=== PATIENT | male | born 1985 | race Caucasian/White ===

== ENCOUNTER 2020-02-26 16:33 | Outpatient (REF) | payer BC, SELFPAY ==
[2020-02-27 12:07] LABS: Lyme Abs Screen <0.90 index
== END 2020-02-26 16:34 | disposition home or self-care (01) ==
LOC: HO.LAB 16:33
PROVIDERS: PCP Internal Medicine; Visit Provider Physician Assistant
DX: B99.9 Unspecified infectious disease (principal)
CPT/HCPCS: 36415; 86618

== ENCOUNTER 2020-10-01 07:53 | Outpatient (REF) | payer BC, SELFPAY | END 2020-10-01 07:54 | disposition home or self-care (01) | LOC: HO.LAB 07:53 | PROVIDERS: PCP Internal Medicine; Visit Provider Internal Medicine | DX: Z20.822 Contact with and (suspected) exposure to COVID-19 (principal) | CPT/HCPCS: C9803; U0003; U0005 ==

== ENCOUNTER 2020-11-11 12:46 | Outpatient (REF) | payer BC, SELFPAY | END 2020-11-11 12:47 | disposition home or self-care (01) | LOC: HO.LAB 12:46 | PROVIDERS: PCP Internal Medicine; Visit Provider Internal Medicine | DX: Z20.822 Contact with and (suspected) exposure to COVID-19 (principal) | CPT/HCPCS: C9803; U0003; U0005 ==

== ENCOUNTER 2021-09-21 09:27 | Outpatient (REF) | payer BC, SELFPAY ==
[2021-09-21 11:22] LABS: MANUAL DIFF FLAG NO
[2021-09-21 11:38] LABS: Estimated Average Glucose 111 mg/dL; Hemoglobin A1c % 5.5 %
[2021-09-21 11:46] LABS: Basophils Absolute Auto 0.1 X10*3/uL (0.0-0.2); Basophils Percent Auto 0.8 % (0-2); Eosinophils Percent Auto 0.5 % (0-4); Hematocrit 44.7 % (42.0-52.0); Hemoglobin 14.7 g/dl (14.0-18.0); Imm Gran Abs Auto 0.01 X10*3/uL (0.00-0.03); Imm Gran Pct Auto 0.2 % (0.0-0.4); Lymphocytes Percent Auto 32.5 % (20-40); Mean Corpuscular HGB Conc 32.9 g/dl (31.0-36.0); Mean Corpuscular Hemoglobin 28.3 pg (27.0-33.0); Mean Corpuscular Volume 86.1 fL (80.0-98.0); Mean Platelet Volume 10.1 fL (9.4-12.4); Monocytes Absolute Auto 0.4 X10*3/uL (0.1-1.2); Monocytes Percent Auto 7.3 % (2-11); Neutrophils Absolute Auto 3.5 x10*3/uL (2.0-8.3); Neutrophils Percent Auto 58.7 % (45-73); Platelet Count 264 X10*3/uL (160-400); Red Blood Count 5.19 X10*6/uL (4.60-5.80); Red Cell Distribution Width 12.7 % (11.0-16.0)
[2021-09-21 12:11] LABS: Alanine Aminotransferase 23 U/L (0-40); Albumin Level 4.5 g/dL (3.5-5.0); Alkaline Phosphatase 45 U/L (39-117); Anion Gap 13 (12-20); Aspartate Amino Transferase 18 U/L (5-37); Blood Urea Nitrogen 15 mg/dL (9-16); Calcium 9.3 mg/dL (8.4-10.2); Carbon Dioxide 28 mmol/L (22-29); Chloride 104 mmol/L (96-108); Cholesterol 204 mg/dL; Estimated Glomerular Filt Rate > 60; Glucose Fasting 107 mg/dL (60-99); HDL Cholesterol 48 mg/dL; LDL Cholesterol Calculated 132 mg/dl; Potassium 4.3 mmol/L (3.3-5.1); Sodium 141 mmol/L (135-145); Triglycerides 120 mg/dL
== END 2021-09-21 09:28 | disposition home or self-care (01) ==
LOC: HO.MANLDS 09:27
PROVIDERS: Visit Provider Physician Assistant
DX: Z00.00 Encounter for general adult medical examination without abnormal findings (principal)
CPT/HCPCS: 36415; 80053; 80061; 83036; 85025

== ENCOUNTER 2022-09-26 09:36 | Outpatient (REF) | payer BC, SELFPAY ==
[2022-09-26 13:45] LABS: MANUAL DIFF FLAG NO
[2022-09-26 14:06] LABS: Basophils Absolute Auto 0.1 X10*3/uL (0.0-0.2); Basophils Percent Auto 0.7 % (0-2); Eosinophils Absolute Auto 0.1 X10*3/uL (0.0-0.4); Eosinophils Percent Auto 1.1 % (0-4); Hematocrit 45.5 % (42.0-52.0); Hemoglobin 14.7 g/dl (14.0-18.0); Imm Gran Abs Auto 0.03 X10*3/uL (0.00-0.03); Imm Gran Pct Auto 0.4 % (0.0-0.4); Lymphocytes Absolute Auto 2.5 X10*3/uL (1.2-4.9); Lymphocytes Percent Auto 34.8 % (20-40); Mean Corpuscular HGB Conc 32.3 g/dl (31.0-36.0); Mean Corpuscular Hemoglobin 28.4 pg (27.0-33.0); Mean Corpuscular Volume 87.8 fL (80.0-98.0); Mean Platelet Volume 9.9 fL (9.4-12.4); Monocytes Absolute Auto 0.5 X10*3/uL (0.1-1.2); Monocytes Percent Auto 6.7 % (2-11); Neutrophils Percent Auto 56.3 % (45-73); Platelet Count 281 X10*3/uL (160-400); Red Blood Count 5.18 X10*6/uL (4.60-5.80); Red Cell Distribution Width 12.6 % (11.0-16.0); White Blood Count 7.1 X10*3/uL (4.8-10.8)
[2022-09-26 15:11] LABS: Estimated Average Glucose 111 mg/dL; Hemoglobin A1c % 5.5 %
[2022-09-26 15:12] LABS: Alanine Aminotransferase 26 U/L (0-40); Albumin Level 4.2 g/dL (3.5-5.0); Alkaline Phosphatase 47 U/L (39-117); Anion Gap 10 (12-20); Aspartate Amino Transferase 23 U/L (5-37); Bilirubin Total 0.5 mg/dL (0.0-1.0); Blood Urea Nitrogen 22 mg/dL (9-16); Calcium 8.8 mg/dL (8.4-10.2); Carbon Dioxide 28 mmol/L (22-29); Chloride 106 mmol/L (96-108); Cholesterol 208 mg/dL; Estimated Glomerular Filt Rate > 60; Glucose Random 94 mg/dL (60-115); HDL Cholesterol 47 mg/dL; LDL Cholesterol Calculated 142 mg/dl; Potassium 3.8 mmol/L (3.3-5.1); Sodium 140 mmol/L (135-145); Total Protein 7.1 g/dL (6.5-8.0); Triglycerides 98 mg/dL
== END 2022-09-26 09:37 | disposition home or self-care (01) ==
LOC: HO.MANLDS 09:36
PROVIDERS: Visit Provider Physician Assistant
DX: Z00.00 Encounter for general adult medical examination without abnormal findings (principal); Z20.2 Contact with and (suspected) exposure to infections with a predominantly sexual mode of transmission
CPT/HCPCS: 36415; 80053; 80061; 83036; 85025

== ENCOUNTER 2024-11-11 16:20 | Outpatient (AMB) | payer BC, SELFPAY | END 2024-11-11 16:22 | disposition home or self-care (01) | LOC: HO.HMGAL 16:20 | PROVIDERS: PCP Physician Assistant; Visit Provider Registered Nurse Emergency | DX: J30.89 Other allergic rhinitis (principal) | CPT/HCPCS: 95117; 95165 ==

== ENCOUNTER 2024-12-04 16:22 | Outpatient (AMB) | payer BC, SELFPAY ==
--- OUTSIDE RECORDS SUMMARY | 2024-12-04 19:27 | XMS_ITS | Encounter Summary ---
Author Organization [facility] Address [address] [place] [address] Phone Care Team Providers Care Senior Associate Name Role Phone Nicholas Mena DO Unavailable Cherise Hernández Primary Care Provider [phone] Encounter Details Date Type Department Care Team (Late st Contact Info) Description 05/31/2024 Transcribe Orders Virtual Department [address] [place] [address] Cherise Hernández PA [address] [place] [address] [place] [address] Social History Tobacco Use Types Packs/Day Years Used Date Smoking Tobacco: Never Smokeless Tobacco: Never Alcohol Use Standard Drinks/Week Comments Yes 0 (1 standard drink = 0.6 oz pur e alcohol) Education Answer Date Recorded Are you interested in more education? Not on francis e 05/05/2024 Are you concerned about learning? Not on file 05/05/2024 No 05/05/2024 No 05/05/2024 Digital Access Answer Date Recorded No 05/05/2024 No 05/05/2024 Reliable internet access at home? Not on file 05/05/2024 Device with a working camera? Not on file Intimate Partner Violence Answer Date R ecorded Are you denied basic needs s uch as food, clothing, or medical care? No 05/05/2024 In the past 12 months have y ou been in a relationship with a person who hurts, threatens, or tries to control you? No 05/05/2024 Are you denied basic needs s uch as food, clothing, or medical care? No 05/05/2024 In the past 12 months have y ou been in a relationship with a person who hurts, threatens, or tries to control you? No 05/05/2024 Sex and Gender Information Value Date Recorded Sex Assigned at Male 05/05/2024 4:34 PM EDT Legal Sex Male 4:29 PM EDT Gender Identity Male 05/05/2024 4:34 PM EDT Sexual Orientation Straight 05/05/2024 4: 34 PM EDT documented as of this encounter Plan of Treatment Not on file documented as of this encounter Visit Diagnoses Not on filedocumented in this encounter Care Teams Senior Associate Relationship Specialty Start Date End Date Cherise Hernández PA [address] [facility] [place] [address] PCP - General Physician Heater Mechanic 05/31/24 Nicholas Mena DO [address] [place] [address] [email or web address] Insurance Assigned Provider 05/26/24 documented as of this encounter Additional Source Comments The information contained in this document represents components of the legal health record. It is not the complete legal health record.[facility]
--- OUTSIDE RECORDS SUMMARY | 2024-12-04 19:27 | XMS_ITS | Clinical Summary ---
Author Organization [facility] Address [address] [place] [address] Phone Care Team Providers Care Admissions Gate Attendant Name Role Phone Nicholas Mena DO Unavailable Cherise Hernández Primary Care Provider [phone] Allergies No known active allergies Medications No known medications Social History Tobacco Use Types Packs/Day Years Used Date Smoking Tobacco: Never Smokeless Tobacco: Never Tobacco Cessation:Counseling Given: Not Answered Alcohol Use Standard Drinks/Week Comments Yes 0 [...] Orientation Straight 05/05/2024 4: 34 PM EDT Last Filed Vital Signs Vital Sign Reading Time Taken Comments Blood Pressure 169/94 05/05/2024 4:36 PM EDT Pulse 82 05/05/2024 4:36 PM EDT Temperature 37.1 C (98.8 F) 05/05/2024 4:36 PM EDT Respiratory Rate 16 05/05/2024 4:36 PM EDT Oxygen Saturation 96% 05/05/2024 4:36 PM EDT Inhaled Oxygen Concentration - - Weight 117.9 kg (260 lb) 05/05/2024 4:36 PM EDT Height 175.3 cm (5' 9 ) 05/05/2024 4:36 PM EDT Body Mass Index 38.4 05/05/2024 4:36 PM EDT Plan of Treatment Not on file Medical Devices Not on file Insurance PPO EPO PPO EPO PPO EPO [place] [address] [place] [address] [place] [address] [place] [address] PPO EPO Care Teams Admissions Gate Attendant Relationship Specialty Start Date End Date Cherise Hernández PA [address] [place] [address] [place] [address] PCP - General Physician Brake Operator Sheet Metal 05/31/24 Nicholas Mena DO [address] [place] [address] [place] [address] [email or web address] Insurance Assigned Provider 05/26/24 Additional Source Comments The information contained in this document represents components of the legal health record. It is not the complete legal health record.[facility]
--- OUTSIDE RECORDS SUMMARY | 2024-12-04 19:27 | XMS_ITS | Encounter Summary ---
Author Organization [facility] Address [address] [place] [address] Phone Care Team Providers Care Administrative Underwriter Name Role Phone Nicholas Mena DO Unavailable Cherise Hernández Primary Care Provider [phone] Encounter Details Date Type Department Care Team (Late st Contact Info) Description 05/31/2024 Ancillary Orders [facility], X-Ray - [address] [address] Cherise Hernández PA [address] [address] [place] [address] Acute bronchitis due to other specified organisms (Primary Dx) Social History Tobacco Use Types Packs/Day Years [...] on file documented as of this encounter Results * XR CHEST PA AND LATERAL 2 VIEWS (05/31/2024 12:52 PM EDT) Anatomical Region Laterality Modality Chest Computed Radiogr aphy 05/31/2024 1:01 PM EDT Impressions 05/31/2024 1:19 PM EDT No acute pulmonary process demonstrated radiographically Narrative 05/31/2024 1:19 PM EDT XR CHEST PA AND LATERAL 2 VIEWS Referring clinician's provided indication for this examination in Epic: Pain COMPARISON: There is no prior study available for comparison. FINDINGS: Devices/Tubes/Lines: None. Lungs: The lungs are well-inflated. No focal consolidation or pulmonary edema. Pleura: No pleural effusion or pneumothorax. Heart/Mediastinum: The radiographic appearance of the cardiomediastinal silhouette is within normal limits Bones/Soft Tissues: No acute skeletal abnormality. Procedure Note Wendy Mello MD - 05/31/2024 XR CHEST PA AND LATERAL 2 VIEWS Referring clinician's provided indication for this examination in Epic:Pain COMPARISON: There is no prior study available for comparison. FINDINGS: Devices/Tubes/Lines: None. Lungs: The lungs are well-inflated. No focal consolidation or pulmonaryedema. Pleura: No pleural effusion or pneumothorax. Heart/Mediastinum: The radiographic appearance of the cardiomediastinalsilhouette is within normal limits Bones/Soft Tissues: No acute skeletal abnormality. IMPRESSION: No acute pulmonary process demonstrated radiographically Cherise SANTIAGO IMG XR CHEST Final Resul t documented in this encounter Visit Diagnoses Diagnosis Acute bronchitis due to other specified organisms- Primary Acute bronchitis due to other specified organisms documented in this encounter Care Teams Administrative Underwriter Relationship Specialty Start Date End Date Cherise Hernández PA [address] [facility] [place] [address] PCP - General Physician Field Cane Scaler Helper 05/31/24 Nicholas Mena DO [address] [place] [address] [email or web address] Insurance Assigned Provider 05/26/24 documented as of this encounter Additional Source Comments The information contained in this document represents components of the legal health record. It is not the complete legal health record.[facility]
--- OUTSIDE RECORDS SUMMARY | 2024-12-04 19:27 | XMS_ITS | Data Portability ---
Author Organization [facility], Telehealth Patient Home Address [address] [place] [address] Assessment Encounter Date Assessment Date Assessment LastModified by Organization Details LastModified Time 01/24/2024 01/24/2024 Patient agreed and verbally consents to this audio and video Telehealth appt via a secure platform [email or web address] Not available 01/24/2024 11:14:25 Plan of Treatment Reminders Order Date Submit Date Provider Last Modified By Organization Details Last Modified Time Details Appointments ANNUAL EXAM 2025 09:00A M JACK LAWRENCE Not available Not available Not available Lab CMP, serum or plasma 2024 025 [facility], [address] [place] [address], [id number], 10/08/2024 09:46:08 lipid panel, blood 2024 025 [facility], [address] [place] [address], [id number], 10/08/2024 09:46:08 CBC w/ auto diff 2024 025 [facility], [address] [place] [address], [id number], 10/08/2024 09:46:08 hemoglobi n A1c, QN, blood 2024 025 [facility], [address] [place] [address], [id number], 10/08/2024 09:46:08 lipid panel, blood 2023 024 [facility], [address] [place] [address], [id number], 10/02/2023 09:22:47 hemoglobi n A1c, QN, blood 2023 024 [facility], [address] [place] [address], [id number], 10/02/2023 09:22:47 CMP, serum or plasma 2023 024 [facility], [address] [place] [address], [id number], 10/02/2023 09:22:47 CBC w/ auto diff 2023 024 [facility], [address] [place] [address], [id number], 10/02/2023 09:22:47 vitamin D, 25-hydrox y, total, serum 2023 024 [facility], [address] [place] [address], [id number], 10/02/2023 09:22:47 CMP, serum or plasma 2022 023 [facility], [address] [place] [address], [id number], 09/27/2022 11:32:21 lipid panel, blood 2022 023 [facility], [address] [place] [address], [id number], 09/27/2022 11:32:21 CBC w/ auto diff 2022 023 [facility], [address] [place] [address], [id number], 09/27/2022 11:32:22 hemoglobi n A1c, QN, blood 2022 023 [facility], [address] [place] [address], [place], [address], 09/27/2022 11:32:22 Referral None recorded. Procedures None recorded. Surgeries None recorded. Imaging XR, chest, 2 view 2024 025 [email or web address] [facility] Central Scheduling (Not Breast), [address] [place], [address], 05/31/2024 16:08:59 Medication Orders amoxicill in 875 mg tablet 2024 025 [facility] [address] [place], [address], 10/08/2024 08:57:48 prednison e 10 mg tablet 2024 025 [facility] [address] [place], [address], 10/08/2024 08:58:21 prednison e 10 mg tablet 2023 024 [email or web address] [facility]acy #2024, [address] [place], [address], 10/08/2024 08:58:18 levofloxa lety 750 mg tablet 2023 025 [facility]REW[facility]/Pharmacy #2024, [address] [place], [address], 10/08/2024 08:59:26 benzonata te 200 mg capsule 2023 025 [facility]/Pharmacy #2024, [address] [place], [address], 10/08/2024 08:57:48 Patient TargetsNo targets recorded. Patient InstructionsNo instructions recorded. Reason for Referral None Reported. Results Created Date Observation Date Name Description Value Unit Range Abnormal Flag Note LastModifiedBy Organization Detail LastModifiedTime 06/01/19 25 05/31/2024 XR, chest , 2 view No observ ation record ed. [email or web address] [address], [address], 06/03/2024 14:28:13 Result Notes None recorded. Problems Name Problem SNOMED Code Status Onset Date Resolution Date Notes Provider Name and Address Organization Details Recorded Time Attentio n deficit hyperact ivity disorder , predomin antly inattent yahir type 69623794 Active 2018 Tori Richardson [facility] 9 14:57:39 Environm ental allergy 513688142 Active 2018 Torimeet Richardson [facility] 14:57:55 Hemorrho ids 50658840 Active 2018 [place] Dylan [facility] 9 14:58:12 History of chickenp ox 927811395 Completed 201804/25/2018 Lin Peace NP, [address] [place] [address], [address], [facility] 9 10:38:13 Myopia 42105884 Active 2018 Torimeet Richardson [facility] 14:58:32 Vitamin D deficien cy 55937417 Active 2018 Torimeet Richardson [facility] 9 14:58:48 Hypercho lesterol emia 10927859 Active 2018 [place] Dylan [facility] 9 14:58:56 Eczema 05992040 Active 2021 JACK LAWRENCE [address] [place] [address], [address], [facility] 2 09:24:57 COVID-19 496624075 Active 2023 JACK LAWRENCE [address] [place] [address], [address], [facility] [place] 4 09:19:41 Pneumoni a 654948293 Active 2023 JACK LAWRENCE [address] [place], [address], [facility] [place] 4 11:10:16 Acute bronchit is 30591731 Active 2024 JACK LAWRENCE [address] [place], [address], [facility] [place] 5 12:17:00 Acute cough Active 2024 JACK LAWRENCE [address] [place], [address], [facility] [place] 5 12:19:44 Influenz a caused by Influenz a A virus 192166783 Active 2024 JACK LAWRENCE [address] [place], [address], [facility] [place] 5 12:19:50 Wheezing 48036897 Active 2024 JACK LAWRENCE [address] [place] [address], [address], [facility] 5 12:20:38 Problem Notes None recorded. Procedures Surgical History Date Name Laterality Status Provider Name and Address Organization Details Recorded Time repair of external ear completed [facility] 04/24/2018 14:59:17 excision of cholesteatoma completed [facility] 04/24/2018 15:00:58 reconstruction of anterior cruciate ligament of knee joint completed [facility] 04/24/2018 15:04:46 repair of meniscus completed [facility] 04/24/2018 15:05:00 Oral surgery procedure completed [facility] 04/24/2018 15:10:55 Imaging Results None recorded. Procedure Notes None recorded. Medical Equipment None Reported. Allergies No known drug allergies Medications Name Sig Start Date Stop Date Status Note LastModified by Organization Details LastModified Time Adderall 20 mg tablet Take 15mg in the AM and 5mg at 4pm 01/07 completed Not Available Not Available Not Available prednisone 10 mg tablet TAKE 4 TABLETS ONCE DAILY FOR 2 DAYS. THEN DECREASE BY 1 TABLET EVERY OTHER DAY UNTIL FINISHED 10/08 completed Not Available Not Available Not Available doxycycline hyclate 100 mg capsule TAKE 1 CAPSULE BY MOUTH TWICE A DAY FOR 7 DAYS 10/01 completed Not Available Not Available Not Available citalopram 40 mg tablet TAKE 1 TABLET BY MOUTH EVERY DAY active Not Available Not Available No t Available benzonatate 200 mg capsule Take 1 capsule 3 times a day by oral route as needed for 10 days. 10/08 completed Not Available Not Available Not Available citalopram 10 mg tablet 05/18 completed Not Available Not Available Not Available methylpheni date 10 mg tablet TAKE 1 TABLET BY MOUTH TWICE A DAY 09/26 completed Not Available Not Available Not Available dextroamphe tamine-amph etamine 10 mg tablet TAKE 1 TABLET BY MOUTH TWICE DAILY 05/18 completed Not Available Not Available Not Available Adderall XR 20 mg capsule,ext ended release TAKE 1 CAPSULE BY MOUTH EVERY DAY IN THE MORNING 05/18 completed Not Available Not Available Not Available propranolol 10 mg tablet TAKE 1 TABLET BY MOUTH TWICE A DAY NEEDED 10/08 completed Not Available Not Available Not Available amoxicillin 875 mg tablet TAKE 1 TABLET BY MOUTH EVERY 12 HOURS FOR 10 DAYS 10/08 completed Not Available Not Available Not Available citalopram 20 mg tablet TAKE 2 TABLETS BY MOUTH EVERY DAY 10/08 completed Not Available Not Available Not Available hydrocortis one-acetic acid 1 %-2 % ear drops 09/17 completed Not Available Not Available Not Available erythromyci n 5 mg/gram (0.5 %) eye ointment APPLY SMALL AMOUNT INTO RIGHT EYE AT BEDTIME 10/08 completed Not Available Not Available Not Available buspirone 10 mg tablet 09/17 completed Not Available Not Available Not Available levofloxaci n 750 mg tablet Take 1 tablet every day by oral route for 7 days. 10/08 completed Not Available Not Available Not Available propranolol 20 mg tablet TAKE 1 TABLET BY MOUTH TWICE A DAY active Not Available Not Available No t Available doxycycline hyclate 100 mg tablet TAKE 1 TABLET BY MOUTH TWICE A DAY FOR 7 DAYS 10/01 completed Not Available Not Available Not Available tobramycin 0.3 %-dexametha sone 0.1 % eye drops,suspe nsion INSTILL 1 DROP INTO AFFECTED EYE EVERY 6 HOURS 09/26 completed Not Available Not Available Not Available moxifloxaci n 0.5 % eye drops PLACE ONE DROP INTO RIGHT EYE EVERY 3 HOURS 10/08 completed Not Available Not Available Not Available methylpheni date LA 20 mg biphasic 50-50 capsule,ext ended release TAKE 1 CAPSULE BY MOUTH EVERY DAY IN THE MORNING 09/26 completed Not Available Not Available Not Available Vitamin D3 qd active Not Available Not Av ailable Not Available Roxana Allergy qd active Not Available Not Available Not Available dextroamphe tamine-amph etamine ER 37.5 mg capsule, 3 bead, ext rel 24hr TAKE 1 CAPSULE BY MOUTH EVERY DAY IN THE MORNING active Not Available Not Available No t Available Fluarix Quad (PF) 60 mcg (15 mcg x 4)/0.5 mL IM syringe 09/17 completed Not Available Not Available Not Available Fluarix Quad (PF) 60 mcg (15 mcg x 4)/0.5 mL IM syringe 09/17 completed Not Available Not Available Not Available Flowflex COVID-19 Antigen Home Test kit TEST DIRECTED TODAY 09/26 completed Not Available Not Available Not Available Vitals Date Recorded Body height Heart rate Oxygen saturation Oxygen saturation in Arterial blood by Pulse oximetry Provider Name and Address Organization Details Last Updated DateTime 05/31/2024 175.26 cm 114 /min 97 % 97 % Jeannie Rizvi [facility] 05/31/2024 12:02:24 Date Recorded Body height Body mass index (BMI) Body weight Heart rate Oxygen saturation Oxygen saturation in Arterial blood by Pulse oximetry Systolic And Diastolic Provider Name and Address Organization Details Last Updated DateTime 3 175.26 cm 38.5 kg/m2 995210. 61 g 74 /min 98 % 98 % 138/82 mm[Hg] Kallie Valadez [facility] 3 09:06:14 Date Recorded Body weight Body mass index (BMI) Body height Heart rate Oxygen saturation Oxygen saturation in Arterial blood by Pulse oximetry Systolic And Diastolic Provider Name and Address Organization Details Last Updated DateTime 4 512669. 49 g 37.7 kg/m2 175.26 cm 87 /min 99 % 99 % 136/78 mm[Hg] Jeannie Rizvi [facility] 4 09:08:00 Date Recorded Body height Body mass index (BMI) Body weight Heart rate Oxygen saturation Oxygen saturation in Arterial blood by Pulse oximetry Systolic And Diastolic Provider Name and Address Organization Details Last Updated DateTime 5 175.26 cm 38.9 kg/m2 012507. 87 g 75 /min 94 % 94 % 126/82 mm[Hg] Jeannie Rizvi [facility] 5 09:04:57 Social History Question Answer Notes LastModified by [employer] Details LastModified Time Tobacco Smoking Status [facility] 04/25/2018 10:28:45 What Is Your Level Of Caffeine Consumption? Occasional Information not available 10/02/2023 In The 14 Days Before Symptom Onset, Have You Had Close Contact With A Laboratory-confirm ed COVID-19 While That Case Was Ill? No Information n ot available 10/02/2023 In The 14 Days Before Symptom Onset, Have You Had Close Contact With A Person Who Is Under Investigation For COVID-19 While That Person Was Ill? No Information not available 10/02/2023 Have You Been To An Area Known To Be High Risk For COVID-19? No Information not available 10/02/2023 What Was The Date Of Your Most Recent Tobacco Screening? 10/08/2024 [email or web address] Information not available 10/08/2024 Sex: Unknown Functional Status Question Answer Note LastModified by [employer] Details LastModified Time Do you use any illicit or recreational drugs? No Information not available 10/02/2023 Do you or have you ever used any other forms of tobacco or nicotine? No Information not available 09/17/2021 What is your level of alcohol consumption? Occasional Information not available 10/02/2023 Mental Status None recorded. Family History Relationship Description Onset Age of this Age Resolved Age Notes LastModified by Organization Details LastModified Time Maternal Grandmother Malignant neoplasm of breast tbalicki Not available 2018 15:05:54 Paternal Grandmother Malignant neoplasm of breast tbalicki Not available 2018 15:05:54 Father Diabetes mellitus tbalicki Not available 2018 15:06:14 Maternal Grandfather Myocardial infarction 45 tbalicki Not available 04/24 15:08:38 Mother Hypertensive disorder rheuma toid arthri cari corcoran Not available 04/25/2018 08:42:51 Mother Hypercholest erolemia rtryba Not available 2023 09:17:28 Brother Diabetes mellitus rtryba Not available 2021 09:13:51 Notes:alzheimers; paternal g randfather dementia: maternal grandmother Medical History Condition Response Allergies/Hayfever Y Coronary Artery Disease N Heart Problems N Kidney Stones N Blood Diseases N Hyperthyroidism N Blood Transfusion N Lung Disease N Hypothyroidism N Eating Disorder N Anemia N Constipation N Anesthesia Complications N Mental Illness Y Anxiety Disorder Y Diabetes N Arthritis N Seizures/Epilepsy N Congestive Heart Failure (CHF) N Cancer N Eczema N Abuse/Domestic Violence N Asthma N Bladder or Kidney Problems N Reflux/GERD N High Cholesterol Y Hepatitis N Liver Disease N Pulmonary Embolism N Hypertension N Chicken Pox Y Kidney Disease N Immunizations Vaccine Type Date Status Note Provider Nam e and Address Organization Details Recorded Time Influenza, split virus, quadrivalent, preservative 1 completed Rosasa Dolores wilson [facility] 09/17/2021 09:03:50 COVID-19, mRNA, LNP-S, PF, 100 mcg/0.5mL dose or 50 mcg/0.25mL dose 1 completed Rosa Gencarelle katie [facility] 09/17/2021 09:03:50 COVID-19, mRNA, LNP-S, PF, 100 mcg/0.5mL dose or 50 mcg/0.25mL dose 1 completed Rosa Gencarelle katie [facility] 09/17/2021 09:03:50 COVID-19, mRNA, LNP-S, PF, 100 mcg/0.5mL dose or 50 mcg/0.25mL dose 11/10/202 1 completed Rosa Gencarelle katie, [facility] 09/17/2021 09:03:50 Tdap 1 completed Carmen wilson [facility] 04/06/2021 08:21:37 Past Encounters Encounter ID Performer Location Encounter Start Date Encounter Closed Date Diagnosis/Indication Diagnosis SNOMED-CT Code Diagnosis ICD10 Code Diagnosis IMO Codes Diagnosis Note [id number] Nicholas Mena [facility] [address] [place] [address] 04/25/2018 10:22:22 04/25/2018 11:37:33 Adult health examination 692451364 Z00.00 Active or passive immunization 793673890 Z23 Attention deficit hyperactivity disorder, predominantly inattentive type 85499441 F90.0 Environmental allergy 42 8323271 T78.49XS allergy shots Qmonth helpful Vitamin D deficiency 347 77245 E55.9 Hypercholesterolemia 136 86635 E78.00 [id number] Nicholas Mena [facility] Internal [address],[place] [address] 01/08/2020 15:50:37 01/08/2020 16:58:15 Infection of tick bite 148103900 B99.9 will fu after lyme test [id number] Nicholas Mena [facility] Internal [address],[place] [address] 09/17/2021 09:02:08 09/17/2021 10:34:57 Active or passive immunization 075309518 Z23 advised Adult [facility] th examination 144469187 Z00.00 will check levels given family hx labile HTN based on history Eczema 18627722 L30.9 mild, no flare ups [id number] Nicholas Mena [facility] Internal [address],[place] [address] 05/18/2022 13:35:14 05/23/2022 09:24:23 Bacterial conjunctivitis 394145659 H10.89 will start on combo eye drop and oral abx Sore throat 307307909 J0 2.0 amox startproba ble strep given being exposed daughter's strep Cough 35059976 R05.9 will start on tessalon perles [id number] Nicholas MoralesThien Mena [facility] Internal Medicine [address] [facility] [address] [place] [address] 09/26/2022 09:00:23 09/26/2022 12:04:29 Active or passive immunization 588947170 Z23 advised Adult heal th examination 730936437 Z00.00 stable Attention deficit hyperactivity disorder, predominantly inattentive type 99183719 F90.0 stable Vitamin D deficiency 347 87641 E55.9 stable [id number] Nicholas Evans Trina [facility] Internal Medicine [address] [facility] [address] [place] [address] 10/02/2023 09:00:39 10/02/2023 10:14:02 Active or passive immunization 087203054 Z23 advised Adult heal th examination 929712382 Z00.00 stable Depression screening 171 053185 Z13.31 is up on the celexa to 40 mgFormerly [facility] tory of Cardiovascular disease 129553514 Z82.49 [id number] Nicholas Nathan Mena [facility] Internal Medicine [address] [address] [place] [address] 01/24/2024 09:58:01 01/24/2024 13:56:49 Pneumonia 187793917 J18.9 start on medication s for pna [id number] Nicholas MoralesThien Mena [facility] Internal Medicine [address] [facility],[place] [address] 05/31/2024 11:53:04 05/31/2024 16:08:59 Acute bronchitis 42095558 J20.8 start on amox x 10 days and pred taper Acute cough 5963355358 21227638 R05.1 start on prednisone Influenza caused by Influenza A virus 776084084 J09.X2 ?weak positive on testing Wheezing 37605767 R06.2 bilateral lungs throughout [id number] Nicholas Mena [facility] Internal Medicine [address] [facility] [address] [place] [address] 10/08/2024 08:54:28 10/08/2024 09:51:10 Active or passive immunization 262176611 Z23 advised Depression screening 171 341032 Z13.31 is up on the celexa to 40 mg and added propranolo [facility]ley [facility] ex amination of patient 530089459 Z00.00 63539713 stable Health Concerns Section Related Observation LastModified by Organization Detai ls LastModified Time None Recorded Concern Status LastModified by Organization Details LastModified Time None Recorded Advance Directives Directive None Recorded Payers Insurance Date Sequence Insurance Name Policy Number Policy Hale Covered Member ID Hale Member ID Guarantor Name 09/30/2023 1 [place] [facility] (HMO) [id number] Bernard Mujicao [id number] Bernard Mujicao 10/05/2024 1 [place] [id number] Bernard [facility] [id number] Bernard Mujicao Notes Date Note Type Note Provider Name and Address Organization Details Recorded Time 3 text/html Annual WellnessReported by PatientSocial/Behaviora l HistoryFor diet and nutrition, patient reportsdiet is high in salt,diet is high in fat, low in fiber, andhigh carbohydrate mealsbut reportsdiscussed vitamin and supplement use,discussed portion control,discussed maintaining calcium balance, anddiscussed diet improvement. For fracture risk, patient reportsno history of fractures,no recent explained fracture,no sudden unexplained fractures, andno previous musculoskeletal injuries. For physical activity, patient reportsexercises on a regular basis,recent increase in physical activity,good physical condition,discussed weightbearing activities, anddiscussed exercise habits. For additional lifestyle factors, patient reportsno tobacco useanddrinks alcohol (mild-moderate).Mental Status:For depression risk, patient reportsnever feels sad, empty, or tearful,no loss of interest in activities,no significant changes in weight,no sleep disturbances or insomnia,no agitation,no loss of energy,no feelings of worthlessness or guilt,no thoughts of suicide,no history of depression, andno history of mood disorders.Functional AbilityFor hearing, patient reportsno loss of hearing. For vision, patient reportsno vision problems. pt is expecting a new child in [place] psychiatrist; currently on celexa 20 mgno side effects, does well with the medication JACK LAWRENCE [address] [place], [address], [facility] [place] 09/26/2022 09:17:22 4 text/html Annual WellnessReported by PatientSocial/Behaviora l HistoryFor diet and nutrition, patient reportshealthy diet,discussed vitamin and supplement use,discussed portion control,discussed maintaining calcium balance, anddiscussed diet improvement. For fracture risk, patient reportsno history of fractures,no recent explained fracture,no sudden unexplained fractures, andno previous musculoskeletal injuries. For physical activity, patient reportsexercises on a regular basis,recent increase in physical activity, andgood physical condition. For additional lifestyle factors, patient reportsno tobacco useanddrinks alcohol (mild-moderate).Mental Status:For depression risk, patient reportsnever feels sad, empty, or tearful,no loss of interest in activities,no significant changes in weight,no sleep disturbances or insomnia,no agitation,no loss of energy,no feelings of worthlessness or guilt,no thoughts of suicide,no history of depression, andno history of mood disorders.Functional AbilityFor hearing, patient reportsno loss of hearing. For vision, patient reportsno vision problems.sees dentist Shahzad as noted in the HPI doing wellthe patient is a little fatigued due to his 8 mos old son teethnegin beanwill be starting couples therapy again, which has been great tool in his relationship JACK LAWRENCE [address] [place], [address], [facility] [place] 10/02/2023 09:26:46 4 text/html ROS as noted in the HPI c/o sick symptoms The patient is participating in this appointment via telemedicine communication with a phone call/video calling service (Doxy)The patient consents to use of these platforms in place of an in-person appointment due to either sick symptoms the patient is presenting with or current office closure due to COVID exposure in order to keep our office staff and patients safe The patient presents to the office today with concerns of sick symptoms including productive cough, fatigue, chills, sinus congestion, wheezing The symptoms started originally 2 weeks ago have progressedThe patient reports exposure to co-workers and his son who all have walking pnaThe patient symptoms mainly involves the cough, fatigue, generally feeling unwell Pertinent comorbidities include n/a The patient symptoms are alleviated by restThe patient symptoms are exacerbated by talking, activity, cold air The patient has tested for COVID-19 and the results was negative x1 JACK LAWRENCE [address] [place], [address], [facility] [place] 01/24/2024 11:16:58 5 text/html ROS as noted in the HPI c/o sob, cold symptoms the patient reports that he has been having on and off issues with sob, fatiguewas sick in January which he was treat for, noted he did feel better, and then he didn't feel better in Feb-Mar does report a positive flu test last weekend, though the line was faint for positive for flu A patient reports that he is getting more sob, cough (dry), chest tightness, wheezing mild ear pain, with drainage non-purulentheadache, fatigue o2 sat is slightly lower than then his usualHR is elevated as well JACK LAWRENCE [address] [place], [address], [facility] [place], operated by [facility] 05/31/2024 12:22:27 5 text/html Annual WellnessReported by PatientSocial/Behaviora l HistoryFor physical activity, patient reportsdoes not exercise on a regular basis,decreased physical activity, andpoor physical conditionbut reportsdiscussed weightbearing activities. For diet and nutrition, patient reportshealthy diet,discussed vitamin and supplement use,discussed portion control,discussed maintaining calcium balance, anddiscussed diet improvement. For fracture risk, patient reportsno history of fractures,no recent explained fracture,no sudden unexplained fractures, andno previous musculoskeletal injuries. For additional lifestyle factors, patient reportsno tobacco use,stopped drinking alcohol, anddrinks alcohol (mild-moderate).Mental Status:For depression risk, patient reportshistory of mood disordersandhistory of depressionbut reportsnever feels sad, empty, or tearful,no loss of interest in activities,no significant changes in weight,no sleep disturbances or insomnia,no agitation,no loss of energy,no feelings of worthlessness or guilt, andno thoughts of suicide.Functional AbilityFor hearing, patient reportsno loss of hearing. For vision, patient reportsno vision problems.last dentist appt was Mary Ellen another one in [facility] as noted in the HPI BP is excellentthe patient is going through a separation with his , working with his psychiatristdoing well JACK LAWRENCE [address] [place] [address], [place], [address], [facility] 10/08/2024 09:31:04
== END 2024-12-04 16:23 | disposition home or self-care (01) ==
LOC: HO.HMGAL 16:22
PROVIDERS: PCP Physician Assistant; Visit Provider Registered Nurse Emergency
DX: J30.89 Other allergic rhinitis (principal)
CPT/HCPCS: 95117; 95165

== ENCOUNTER 2025-01-10 08:43 | Outpatient (REF) | payer BC, SELFPAY ==
--- OUTSIDE RECORDS SUMMARY | 2025-01-10 08:46 | XMS_ITS | Clinical Summary ---
Author Organization [facility] Address [address] [place] [address] Phone Care Team Providers Care Accounting Administrative Assistant Name Role Phone Nicholas Mena DO Unavailable Cherise Hernández Primary Care Provider [phone] Allergies No known active allergies Medications No [...] EPO PPO EPO PPO [place] [address] [place] [address] [address] [address] [place] [address] PPO EPO Care Teams Accounting Administrative Assistant Relationship Specialty Start Date End Date Cherise Hernández PA [address] [place] [address] [place] [address] PCP - General Physician Shirt Finisher 05/31/24 Nicholas Mena DO [address] [place] [address] [place] [address] [email or web address] Insurance Assigned Provider 05/26/24 Additional Source Comments The information contained in this document represents components of the legal health record. It is not the complete legal health record.[facility]
--- OUTSIDE RECORDS SUMMARY | 2025-01-10 08:47 | XMS_ITS | Continuity of Care Document ---
Author Organization [facility], [facility] Address [address] [facility] [place] [address] [place] [address] Assessment No assessment recorded. Plan of Treatment Reminders Order Date Submit Date Provider Last Modified By Organization Details Last Modified Time Details Appointments ANNUAL EXAM 2025 09:00A M JACK LAWRENCE Not available Not available Not available Lab None recorded. Referral dermatolo gist referral 2024 025 [facility], [address] [place] [address], [address], 12/18/2024 08:24:54 Procedures None recorded. Surgeries None recorded. Imaging None recorded. Medication Orders doxycycli ne hyclate 100 mg tablet 2024 025 [facility], [address] [place], [address], 12/25/2024 05:01:17 Patient TargetsNo targets recorded. Patient InstructionsNo instructions recorded. Reason for Referral Economic Consultant Referral for P igmented skin lesion new mole on bottom lip Referring Physician: Cherise Hernández, Internal Medicine, Encounter Date: 12/17/2024 Problems Name Problem SNOMED Code Status Onset Date Resolution Date Notes Provider Name and Address Organization Details Recorded Time Attentio n deficit hyperact ivity disorder , predomin antly inattent yahir type 21460550 Active 2018 [facility] 9 14:57:39 Environm ental allergy 216475089 Active 2018 [facility] 9 14:57:55 Hemorrho ids 67725140 Active 2018 [place] Rooseveltsarah [facility] 9 14:58:12 History of chickenp ox 270688353 Completed 201804/25/2018 Lin Peace NP, [address] [place], [address], [facility] 9 10:38:13 Myopia 98905456 Active 2018 Torimeet Richardson [facility] 9 14:58:32 Vitamin D deficien cy 73712814 Active 2018 [place] [facility] 9 14:58:48 Hypercho lesterol emia 99823769 Active 2018 [facility] 9 14:58:56 Eczema 80427914 Active 2021 JACK LAWRENCE [address] [place] [address], [address], [facility] 2 09:24:57 COVID-19 909648115 Active 2023 JACK LAWRENCE [address] [place] [address], [address], [facility] 4 09:19:41 Pneumoni a 802944922 Active 2023 JACK LAWRENCE [address] [place] [address], [address], [facility] 4 11:10:16 Acute bronchit is 41866881 Active 2024 JACK LAWRENCE [address] [place] [address], [address], [facility] 5 12:17:00 Acute cough Active 2024 JACK LAWRENCE [address] [place] [address], [address], [facility] 5 12:19:44 Influenz a caused by Influenz a A virus 158326763 Active 2024 JACK LAWRENCE [address] [place] [address], [address], [facility] 12:19:50 Wheezing 33347870 Active 2024 JACK LAWRENCE [address] [place] [address], [address], [facility] 12:20:38 Tick bite 57814870 Active 2024 JACK LAWRENCE [address] [place] [address], [address], [facility] 09:58:49 Depressi ve disorder 94741712 Active 2024 JACK LAWRENCE [address] [place] [address], [address], [facility] 10:00:24 Pigmente d skin lesion 675019826 Active 2024 JACK LAWRENCE [address] [place] [address], [address], [facility] 10:03:56 Acute sinusiti s 14530076 Active 2024 JACK LAWRENCE [address] [place] [address], [address], [facility] 13:49:30 Problem Notes None recorded. Procedures Surgical History Date Name Laterality Status Provider Name and Address Organization Details Recorded Time repair of external ear completed [facility] 04/24/2018 14:59:17 excision of cholesteatoma completed [facility] 04/24/2018 15:00:58 reconstruction of anterior cruciate ligament of knee joint completed [facility] 04/24/2018 15:04:46 repair of meniscus completed [facility] 04/24/2018 15:05:00 Oral surgery procedure completed [facility] 04/24/2018 15:10:55 Imaging Results None recorded. Procedure [...] t Available doxycycline hyclate 100 mg tablet Take 1 tablet twice a day by oral route for 1 day. 12/25 completed Not Available Not Available Not Available [...] Not Available Vitals Date Recorded Body height Body mass index (BMI) Body weight Heart rate Oxygen saturation Systolic And Diastolic Provider Name and Address Organization Details Last Updated DateTime 175.26 cm 38.8 kg/m2 247522. 79 g 70 /min 98 % 120/80 mm[Hg] [facility] 09:51:21 Social History Question Answer Notes LastModified by Organizat ion Details LastModified Time Tobacco Smoking Status Never Smoker [facility] 04/25/2018 10:28:45 What Is Your [...] Date Of Your Most Recent Tobacco Screening? 12/17/2024 [email or web address] Information not available 12/17/2024 Sex: Unknown Functional Status Question Answer Note LastModified by Organizat ion Details LastModified Time Do you use any [...] 04/24 15:08:38 Mother Hypertensive disorder rheuma toid shelton corcoran Not available 04/25/2018 08:42:51 Mother Hypercholest erolemia rtryba Not available 2023 09:17:28 Brother Diabetes mellitus [email or web address] Not available 2021 09:13:51 Notes:alzheimers; paternal g randfather dementia: maternal grandmother Medical History Condition Response Coronary Artery Disease N Kidney Stones N Blood Diseases N Hyperthyroidism N Blood Transfusion N Lung Disease N Hypothyroidism N Anesthesia Complications N Anxiety Disorder Y Arthritis N Cancer N Bladder or Kidney Problems N High Cholesterol Y Liver Disease N Kidney Disease N Allergies/Hayfever Y Heart Problems N Eating Disorder N Anemia N Constipation N Mental Illness Y Diabetes N Seizures/Epilepsy N Congestive Heart Failure (CHF) N Eczema N Abuse/Domestic Violence N Asthma N Reflux/GERD N Hepatitis N Pulmonary Embolism N Hypertension N Chicken Pox Y Immunizations Vaccine Type Date Status Note Provider Nam e and Address Organization Details Recorded Time Influenza, split virus, quadrivalent, preservative 1 completed Rosa Gencarelle katie [facility] 09/17/2021 09:03:50 COVID-19, mRNA, LNP-S, PF, 100 mcg/0.5mL dose or 50 mcg/0.25mL dose completed Rosa Choudharycarelle katie [facility] 09/17/2021 09:03:50 COVID-19, mRNA, LNP-S, PF, 100 mcg/0.5mL dose or 50 mcg/0.25mL dose completed Rosa Choudharycarelle katie [facility] 09/17/2021 09:03:50 COVID-19, mRNA, LNP-S, PF, 100 mcg/0.5mL dose or 50 mcg/0.25mL dose 1 completed Rosa Choudharycarelle katie [facility] 09/17/2021 09:03:50 Tdap 1 completed Carmen wilson [facility] 04/06/2021 08:21:37 Past Encounters Encounter ID Performer Location Encounter Start Date Encounter Closed Date Diagnosis/Indication Diagnosis SNOMED-CT Code Diagnosis ICD10 Code Diagnosis IMO Codes Diagnosis Note [id number] Nicholas Mena [facility] [address] [facility],[place] [address] 12/17/2024 09:46:20 12/17/2024 14:41:22 Tick bite 25538274 S20.162D W57.XXXD 0547672040 will set up with singulair dose Depressive disorder 3548 9007 F32.A 54063 stable Pigmented skin lesion 20 5380721 D22.9 449458 will set up with derm for eval Health Concerns Section Related Observation LastModified by Organization Reji ls LastModified Time None Recorded Concern Status LastModified by Organization Details LastModified Time None Recorded Payers Encounter Date Sequence Insurance Name Policy Number Policy Hale Covered Member ID Hale Member ID Guarantor Name 12/17/2024 1 [id number] (O) [id number] Brenard Ramirez [id number] Bernard Ramirez Notes Date Note Type Note Provider Name a nd Address Organization Details Recorded Time 12/17/2024 text/html ROS as noted in the HPI c/o tick bite/?embedded tick the patient called yesterday about a possible embedded tick, the patient reports that he thinks he got it all outknows it was a deer tick based on markings > probably female according to pt based on size was only on for about 12 hours or soprobably got it when he was outside with his kids this past weekend denies fever, chills, rash, muscle/joint pain more than typical for patient the patient reports that he has a freckle on his bottom lip, noted by dentist, recommended derm eval, also needs routine skin checks going forwardthe patient reports that he hasn't noticed it changed, but does admit he didn't notice at all to begin with until his dentist pointed it out JACK LAWRENCE [address] [facility], [place], [address], [facility] 12/17/2024 10:08:49
--- OUTSIDE RECORDS SUMMARY | 2025-01-10 08:47 | XMS_ITS | Encounter Summary ---
Author Organization [facility] Address [address] [facility] [address] [place] [address] Phone Care Team Providers Care Retail Team Leader Name Role Phone Nicholas Mena DO Unavailable Cherise Hernández Primary Care Provider [phone] Encounter Details Date Type Department Care Team (Late st Contact Info) Description 05/31/2024 Transcribe Orders Virtual Department [address] [place] [address] Cherise Hernández PA [address] [place] [address] [place] [address] Social History Tobacco Use Types Packs/Day Years [...] on filedocumented in this encounter Care Teams Retail Team Leader Relationship Specialty Start Date End Date Cherise Hernández PA [address] [facility] [place] [address] PCP - General Physician Box Liner 05/31/24 Nicholas Mena DO [address] [facility] [place] [address] [email or web address] Insurance Assigned Provider 05/26/24 documented as of this encounter Additional Source Comments The information contained in this document represents components of the legal health record. It is not the complete legal health record.[facility]
--- OUTSIDE RECORDS SUMMARY | 2025-01-10 08:47 | XMS_ITS | Encounter Summary ---
Author Organization [facility] Address [address] [facility] [facility] [address] [place] [address] Phone Care Team Providers Care Radio Survey Worker Name Role Phone Nicholas Mena DO Unavailable Cherise Hernández Primary Care Provider [phone] Encounter Details Date Type Department Care Team (Late st Contact Info) Description 05/31/2024 Ancillary Orders [facility], X-Ray - [address] [address] Cherise Hernández PA [facility] [place] [address] Acute bronchitis due to other specified organisms [...] organisms documented in this encounter Care Teams Radio Survey Worker Relationship Specialty Start Date End Date Cherise Hernández PA [address] [facility] [place] [address] PCP - General Physician Janitorial Tech 05/31/24 Nicholas Mena DO [address] [facility] [place] [address] [email or web address] Insurance Assigned Provider 05/26/24 documented as of this encounter Additional Source Comments The information contained in this document represents components of the legal health record. It is not the complete legal health record.[facility]
[2025-01-10 14:01] LABS: MANUAL DIFF FLAG NO
[2025-01-10 14:15] LABS: Hematocrit 45.5 % (42.0-52.0); Hemoglobin 15.0 g/dl (14.0-18.0); Imm Gran Abs Auto 0.03 X10*3/uL (0.00-0.03); Imm Gran Pct Auto 0.3 % (0.0-0.4); Lymphocytes Absolute Auto 2.0 X10*3/uL (1.2-4.9); Mean Corpuscular HGB Conc 33.0 g/dl (31.0-36.0); Mean Corpuscular Hemoglobin 28.1 pg (27.0-33.0); Mean Corpuscular Volume 85.2 fL (80.0-98.0); NRBC Abs Auto 0.000 X10*3/uL (0.0-0.012); NRBC Pct Auto 0.0 /100WBC (0.0-0.2); Platelet Count 322 X10*3/uL (160-400); Red Blood Count 5.34 X10*6/uL (4.60-5.80); White Blood Count 11.1 X10*3/uL (4.8-10.8)
[2025-01-10 14:40] LABS: Alanine Aminotransferase 29 U/L (0-40); Albumin Level 4.8 g/dL (3.5-5.0); Alkaline Phosphatase 58 U/L (39-117); Anion Gap 8 (12-20); Aspartate Amino Transferase 24 U/L (5-37); Blood Urea Nitrogen 20 mg/dL (9-16); Calcium 9.1 mg/dL (8.4-10.2); Carbon Dioxide 31 mmol/L (22-29); Chloride 106 mmol/L (96-108); Cholesterol 210 mg/dL (<200); Estimated Glomerular Filt Rate > 60; HDL Cholesterol 46 mg/dL (>40); Potassium 4.3 mmol/L (3.3-5.1); Sodium 141 mmol/L (135-145); Total Protein 7.5 g/dL (6.5-8.0); Triglycerides 125 mg/dL (<150)
== END 2025-01-10 08:44 | disposition home or self-care (01) ==
LOC: HO.MANLDS 08:43
PROVIDERS: Visit Provider Physician Assistant
DX: Z00.00 Encounter for general adult medical examination without abnormal findings (principal); Z13.1 Encounter for screening for diabetes mellitus; Z13.6 Encounter for screening for cardiovascular disorders
CPT/HCPCS: 36415; 80053; 80061; 83036; 85025

== ENCOUNTER 2025-01-29 16:09 | Outpatient (AMB) | payer BC, SELFPAY ==
--- OUTSIDE RECORDS SUMMARY | 2025-01-30 00:47 | XMS_ITS | Encounter Summary ---
Author Organization [facility] Address [address] [facility] [address] [place] [address] Phone Care Team Providers Care Electroencephalographic Technologist Name Role Phone Nicholas Mena DO Unavailable Cherise Hernández Primary Care Provider [phone] Encounter Details Date Type Department Care Team (Late st Contact Info) Description 05/31/2024 Transcribe Orders Virtual Department [address] [place] [address] Cherise Hernández PA [address] [place] [address] [place] [address] Social History Tobacco Use Types Packs/Day Years [...] on filedocumented in this encounter Care Teams Electroencephalographic Technologist Relationship Specialty Start Date End Date Cherise Hernández PA [address] [facility] [place] [address] PCP - General Physician Electric Motor Mechanic 05/31/24 Nicholas Mena DO [address] [facility] [place] [address] [email or web address] Insurance Assigned Provider 05/26/24 documented as of this encounter Additional Source Comments The information contained in this document represents components of the legal health record. It is not the complete legal health record.[facility]
--- OUTSIDE RECORDS SUMMARY | 2025-01-30 00:47 | XMS_ITS | Clinical Summary ---
Author Organization [facility] Address [address] [facility] [address] [place] [address] Phone Care Team Providers Care Health And Safety Consultant Name Role Phone Nicholas Mena DO Unavailable Cherise Hernández Primary Care Provider [phone] Allergies No known active allergies Medications No [...] EPO PPO EPO PPO [place] [address] [place] [address] [place] [address] [place] [address] PPO EPO Care Teams Health And Safety Consultant Relationship Specialty Start Date End Date Cherise Hernández PA [address] [place] [address] [place] [address] PCP - General Physician Licensed Journeyman Electrician 05/31/24 Nicholas Mena DO [address] [place] [address] [place] [address] [email or web address] Insurance Assigned Provider 05/26/24 Additional Source Comments The information contained in this document represents components of the legal health record. It is not the complete legal health record.[facility]
--- OUTSIDE RECORDS SUMMARY | 2025-01-30 00:47 | XMS_ITS | Encounter Summary ---
Author Organization [facility] Address [address] [facility] [address] [place] [address] Phone Care Team Providers Care Manager Of Recruiting Name Role Phone Nicholas Mena DO Unavailable Cherise Hernández Primary Care Provider [phone] Encounter Details Date Type Department Care Team (Late st Contact Info) Description 05/31/2024 Ancillary Orders [facility], X-Ray - [address] [address] Cherise Hernández PA [facility] [place] [address] Acute bronchitis due to other specified organisms [...] organisms documented in this encounter Care Teams Manager Of Recruiting Relationship Specialty Start Date End Date Cherise Hernández PA [address] [facility] [place] [address] PCP - General Physician Loss Prevention Associate 05/31/24 Nicholas Mena DO [address] [facility] [place] [address] [email or web address] Insurance Assigned Provider 05/26/24 documented as of this encounter Additional Source Comments The information contained in this document represents components of the legal health record. It is not the complete legal health record.[facility]
--- OUTSIDE RECORDS SUMMARY | 2025-01-30 00:47 | XMS_ITS | Continuity of Care Document ---
Author Organization [facility], [facility] Address [address] [place] [address] [place] [address] Assessment No assessment recorded. Plan of Treatment Reminders Order Date Submit Date Provider Last Modified By Organization Details Last Modified Time Details Appointments ANNUAL EXAM 2025 09:00A M JACK LAWRENCE Not available Not available Not available Lab None recorded. Referral dermatolo gist referral 2024 025 [facility], [address] [place] [address], [id number], 12/18/2024 08:24:54 Procedures None recorded. Surgeries None recorded. Imaging None recorded. Medication Orders doxycycli ne hyclate 100 mg tablet 2024 025 [facility]/Pharmacy #5, [address] [place], [address], 12/25/2024 05:01:17 Patient TargetsNo targets recorded. Patient InstructionsNo instructions recorded. Reason for Referral Utility Specialist Referral for P igmented skin lesion new mole on bottom lip Referring Physician: Cherise Hernández, Internal Medicine, Encounter Date: 12/17/2024 Problems Name Problem SNOMED Code Status Onset Date Resolution Date Notes Provider Name and Address Organization Details Recorded Time Attentio n deficit hyperact ivity disorder , predomin antly inattent yahir type 00489986 Active 2018 [facility] 9 14:57:39 Environm ental allergy 256729066 Active 2018 [facility] 9 14:57:55 Hemorrho ids 53176338 Active 2018 [place] Rooseveltsarah [facility] 9 14:58:12 History of chickenp ox 983332864 Completed 201804/25/2018 Lin Peace NP, [address] [place], [address], [facility] 9 10:38:13 Myopia 69121144 Active 2018 Torimeet Richardson [facility] 9 14:58:32 Vitamin D deficien cy 26573057 Active 2018 [place] [facility] 9 14:58:48 Hypercho lesterol emia 02006588 Active 2018 [facility] 9 14:58:56 Eczema 11223174 Active 2021 JACK LAWRENCE [address] [place] [address], [address], [facility] 2 09:24:57 COVID-19 598428670 Active 2023 JACK LAWRENCE [address] [place] [address], [address], [facility] 4 09:19:41 Pneumoni a 401149397 Active 2023 JACK LAWRENCE [address] [place] [address], [address], [facility] 4 11:10:16 Acute bronchit is 82928156 Active 2024 JACK LAWRENCE [address] [place] [address], [address], [facility] 5 12:17:00 Acute cough Active 2024 JACK LAWRENCE [address] [place] [address], [address], [facility] 5 12:19:44 Influenz a caused by Influenz a A virus 537982428 Active 2024 JACK LAWRENCE [address] [place] [address], [address], [facility] 12:19:50 Wheezing 18690805 Active 2024 JACK LAWRENCE [address] [place] [address], [address], [facility] 12:20:38 Tick bite 70826178 Active 2024 JACK LAWRENCE [address] [place] [address], [address], [facility] 09:58:49 Depressi ve disorder 72528434 Active 2024 JACK LAWRENCE [address] [place] [address], [address], [facility] 10:00:24 Pigmente d skin lesion 086176722 Active 2024 JACK LAWRENCE [address] [place] [address], [address], [facility] 10:03:56 Acute sinusiti s 16721474 Active 2024 JACK LAWRENCE [address] [place] [address], [address], [facility] 13:49:30 Problem Notes None recorded. Procedures Surgical History Date Name Laterality Status Provider Name and Address Organization Details Recorded Time repair of external ear completed [facility] 04/24/2018 14:59:17 excision of cholesteatoma completed [facility] 04/24/2018 15:00:58 reconstruction of anterior cruciate ligament of knee joint completed [facility] 04/24/2018 15:04:46 repair of meniscus completed [facility] 04/24/2018 15:05:00 Oral surgery procedure completed [facility] 04/24/2018 15:10:55 Imaging Results None recorded. Procedure [...] Last Updated DateTime 175.26 cm 38.8 kg/m2 280530. 79 g 70 /min 98 % 120/80 [...] Of Your Most Recent Tobacco Screening? 12/17/2024 [email or web address] Information not available 12/17/2024 Sex: Unknown Functional [...] quadrivalent, preservative 1 completed Rosa Gencarelle katie [facility] 09/17/2021 09:03:50 COVID-19, mRNA, LNP-S, PF, 100 mcg/0.5mL dose or 50 mcg/0.25mL dose completed Rosa Chuodharycarelle katie [facility] 09/17/2021 09:03:50 COVID-19, mRNA, LNP-S, PF, 100 mcg/0.5mL dose or 50 mcg/0.25mL dose completed Rosa Choudharycarelle katie [facility] 09/17/2021 09:03:50 COVID-19, mRNA, LNP-S, PF, 100 mcg/0.5mL dose or 50 mcg/0.25mL dose 1 completed Rosa Choudharycarelle katie [facility] 09/17/2021 09:03:50 Tdap 1 completed Carmen wilson [facility] 04/06/2021 08:21:37 Past Encounters Encounter ID Performer Location Encounter Start Date Encounter Closed Date Diagnosis/Indication Diagnosis SNOMED-CT Code Diagnosis ICD10 Code Diagnosis IMO Codes Diagnosis Note [id number] Nicholas M[facility] [address],[place] [address] 12/17/2024 09:46:20 12/17/2024 14:41:22 Tick bite 87901440 S20.162D W57.XXXD 8566257679 will set up with singulair dose Depressive disorder 3548 9007 F32.A 10903 stable Pigmented skin lesion 20 5805542 D22.9 719406 will set up with derm for eval Health Concerns Section Related Observation LastModified by Organization Reji ls LastModified Time None Recorded Concern Status LastModified by Organization Details LastModified Time None Recorded Payers Encounter Date Sequence Insurance Name Policy Number Policy Hale Covered Member ID Hale Member ID Guarantor Name 12/17/2024 1 [employer] (O) [id number] Bernard Ramirez [id number] Bernard Ramirez Notes Date Note Type [...] dentist pointed it out JACK LAWRENCE [address], [place], [address], [facility] 12/17/2024 10:08:49
--- OUTSIDE RECORDS SUMMARY | 2025-01-30 00:48 | XMS_ITS | Data Portability ---
Author Organization [facility], Telehealth Patient Home Address [address] [place] [address] Assessment Encounter Date Assessment Date Assessment LastModified [...] Lab CMP, serum or plasma 2024 025 [facility], [address] [place] [address], [address], 01/13/2025 13:09:32 lipid panel, blood 2024 025 [facility], [address] [place] [address], [address], 10/08/2024 09:46:08 CBC w/ auto diff 2024 025 [facility], [address] [place] [address], [address], 10/08/2024 09:46:08 hemoglobi n A1c, QN, blood 2024 025 [facility], [address] [place] [address], [address], 10/08/2024 09:46:08 lipid panel, blood 2023 024 [facility], [address] [place] [address], [address], 10/02/2023 09:22:47 hemoglobi n A1c, QN, blood 2023 024 [facility], [address] [place] [address], [address], 10/02/2023 09:22:47 CMP, serum or plasma 2023 024 [facility], [address] [place] [address], [address], 10/02/2023 09:22:47 CBC w/ auto diff 2023 024 [facility], [address] [place] [address], [address], 10/02/2023 09:22:47 vitamin D, 25-hydrox y, total, serum 2023 024 [facility], [address] [place] [address], [address], 10/02/2023 09:22:47 Referral dermatolo gist referral 2024 [facility], [address] [place] [address], [address], 12/18/2024 08:24:54 Procedures None recorded. Surgeries None recorded. Imaging XR, chest, 2 view 2024 [email or web address] [facility] Central Scheduling (Not Breast), [address] [place], [address], 05/31/2024 16:08:59 Medication Orders doxycycli ne hyclate 100 mg tablet 2024 025 [facility]/Pharmacy #2025, [address] [place], [address], 12/25/2024 05:01:17 amoxicill in 875 mg tablet 2024 025 [facility] [address] [place] [address], [address], 10/08/2024 08:57:48 prednison e 10 mg tablet 2024 025 [facility], [address] [place], [address], 10/08/2024 08:58:21 prednison e 10 mg tablet 2023 024 [facility] [address] [place] [address], [address], 10/08/2024 08:58:18 levofloxa lety 750 mg tablet 2023 025 [facility] [address] [place], [address], 10/08/2024 08:59:26 benzonata te 200 mg capsule 2023 025 [facility], [address] [place], [address], 10/08/2024 08:57:48 Patient TargetsNo targets recorded. Patient InstructionsNo instructions recorded. Reason for Referral Web Manager Referral for P igmented skin lesion new mole on bottom lip Referring Physician: Cherise Hernández, Internal Medicine, Encounter Date: 12/17/2024 Results Created Date Observation Date Name Description Value Unit Range Abnormal Flag Note LastModifiedBy Organization Detail LastModifiedTime 06/01/19 25 05/31/2024 XR, chest , 2 view No observ ation record ed. [email or web address] [address], [address], 06/03/2024 14:28:13 Result Notes None recorded. Problems Name Problem SNOMED Code Status Onset Date Resolution Date Notes Provider Name and Address Organization Details Recorded Time Attentio n deficit hyperact ivity disorder , predomin antly inattent yahir type 08827230 Active 2018 Odessa Dylan [facility] 9 14:57:39 Environm ental allergy 921015234 Active 2018 [facility] 9 14:57:55 Hemorrho ids 85186972 Active 2018 [facility] 9 14:58:12 History of chickenp ox 557661900 Completed 201804/25/2018 Lin Peace NP, S [address] [place] [address], [address], [facility] 9 10:38:13 Myopia 97037864 Active 2018 [facility] 9 14:58:32 Vitamin D deficien cy 38129092 Active 2018 [facility] 9 14:58:48 Hypercho lesterol emia 47414587 Active 2018 [facility] 9 14:58:56 Eczema 89995239 Active 2021 JACK LAWRENCE [address] [place], [address], [facility] 2 09:24:57 COVID-19 052319085 Active 2023 JACK LAWRENCE [address] [place], [address], [facility] 4 09:19:41 Pneumoni a 746848311 Active 2023 JACK LAWRENCE [address] [place], [address], [facility] 4 11:10:16 Acute bronchit is 52764014 Active 2024 JACK LAWRENCE [address] [place] [address], [address], [facility] 12:17:00 Acute cough Active 2024 JACK LAWRENCE [address] [place] [address], [address], [facility] 12:19:44 Influenz a caused by Influenz a A virus 589704783 Active 2024 JACK LAWRENCE [address] [place] [address], [address], [facility] 12:19:50 Wheezing 38895453 Active 2024 JACK LWARENCE [address] [place] [address], [address], [facility] 12:20:38 Tick bite 40230180 Active 2024 JACK LAWRENCE [address] [place] [address], [address], [facility] 09:58:49 Depressi ve disorder 75218615 Active 2024 JACK LAWRENCE [address] [place] [address], [address], [facility] 10:00:24 Pigmente d skin lesion 743258069 Active 2024 JACK LAWRENCE [address] [place] [address], [address], [facility] 10:03:56 Acute sinusiti s 92770816 Active 2024 JACK LAWRENCE [address] [place] [address], [address], [facility] 13:49:30 Problem Notes None recorded. Procedures Surgical History Date Name Laterality Status Provider Name and Address Organization Details Recorded Time repair of external ear [facility] 14:59:17 excision of cholesteatoma completed Tori [facility] 04/24/2018 15:00:58 reconstruction of anterior cruciate ligament of knee joint completed [facility] 04/24/2018 15:04:46 repair of meniscus completed [facility] 04/24/2018 15:05:00 Oral surgery procedure completed [facility] 04/24/2018 15:10:55 Imaging Results None recorded. Procedure [...] Recorded Body height Heart rate Oxygen saturation Provider Name and Address Organization Details Last Updated DateTime 05/31/2024 175.26 cm 114 /min 97 % Je[facility] 05/31/2024 12:02:24 Date Recorded Body weight Body mass index (BMI) Body height Heart rate Oxygen saturation Systolic And Diastolic Provider Name and Address Organization Details Last Updated DateTime 4 060601. 49 g 37.7 kg/m2 175.26 cm 87 /min 99 % 136/78 mm[Hg] Jeannie Drew [facility] 4 09:08:00 Date Recorded Body height Body mass index (BMI) Body weight Heart rate Oxygen saturation Systolic And Diastolic Provider Name and Address Organization Details Last Updated DateTime 5 175.26 cm 38.9 kg/m2 920520. 87 g 75 /min 94 % 126/82 mm[Hg] Jeannie Drew [facility] 5 09:04:57 Date Recorded Body height Body mass index (BMI) Body weight Heart rate Oxygen saturation Systolic And Diastolic Provider Name and Address Organization Details Last Updated DateTime 5 175.26 cm 38.8 kg/m2 215901. 79 g 70 /min 98 % 120/80 mm[Hg] Kallie Valadez [facility] 5 09:51:21 Social History Question Answer Notes LastModified by Vopium Details LastModified Time Tobacco Smoking Status [facility] 10:28:45 What Is Your Level Of [...] Of Your Most Recent Tobacco Screening? 12/17/2024 [email or web address] Information not available 12/17/2024 Sex: Unknown Functional Status Question Answer Note LastModified by [employer] Details LastModified Time Do you use any [...] N Anesthesia Complications N Mental Illness Y Diabetes N Anxiety Disorder Y Seizures/Epilepsy N Arthritis N Congestive Heart Failure (CHF) N Eczema N Cancer N Abuse/Domestic Violence N Asthma N Bladder or Kidney Problems N Reflux/GERD N High Cholesterol Y Hepatitis N Liver Disease N Pulmonary Embolism N Hypertension N Chicken Pox Y Kidney Disease N Immunizations Vaccine Type Date Status Note Provider Nam e and Address Organization Details Recorded Time Influenza, split virus, quadrivalent, preservative completed [facility] 09/17/2021 09:03:50 COVID-19, mRNA, LNP-S, PF, 100 mcg/0.5mL dose or 50 mcg/0.25mL dose completed [facility] 09/17/2021 09:03:50 COVID-19, mRNA, LNP-S, PF, 100 mcg/0.5mL dose or 50 mcg/0.25mL dose 1 completed Rosa wilson [facility] 09/17/2021 09:03:50 COVID-19, mRNA, LNP-S, PF, 100 mcg/0.5mL dose or 50 mcg/0.25mL dose 1 completed Rosa wilson [facility] 09/17/2021 09:03:50 Tdap 1 completed Carmen wilson [facility] 04/06/2021 08:21:37 Past Encounters Encounter ID Performer Location Encounter Start Date Encounter Closed Date Diagnosis/Indication Diagnosis SNOMED-CT Code Diagnosis ICD10 Code Diagnosis IMO Codes Diagnosis Note [id number] Nicholas Mena [facility] [address], [place] [address] 04/25/2018 10:22:22 04/25/2018 11:37:33 Adult health examination 619976023 Z00.00 Active or passive immunization 081917668 Z23 Attention deficit hyperactivity disorder, predominantly inattentive type 77584339 F90.0 Environmental allergy 42 0546080 T78.49XS allergy shots Qmonth helpful Vitamin D deficiency 347 50782 E55.9 Hypercholesterolemia 136 92750 E78.00 [id number] Nicholas Mena [facility] [address], [place] [address] 01/08/2020 15:50:37 01/08/2020 16:58:15 Infection of tick bite 587442380 B99.9 will fu after lyme test [id number] Nicholas Mena [facility] [address], [place] [address] 09/17/2021 09:02:08 09/17/2021 10:34:57 Active or passive immunization 555137808 Z23 advised Adult heal th examination 497380880 Z00.00 will check levels given family hx labile HTN based on history Eczema 98408172 L30.9 mild, no flare ups [id number] Nicholas [facility] [address],[place] [address] 05/18/2022 13:35:14 05/23/2022 09:24:23 Bacterial conjunctivitis 663286144 H10.89 will start on combo eye drop and oral abx Sore throat 181108921 J0 2.0 amox startproba ble strep given being exposed daughter's strep Cough 32841309 R05.9 will start on tessalon perles [id number] Nicholas [facility] [address], [address] [facility] [place] [address] 09/26/2022 09:00:23 09/26/2022 12:04:29 Active or passive immunization 254345098 Z23 advised Adult heal examination 939725936 Z00.00 stable Attention deficit hyperactivity disorder, predominantly inattentive type 52280707 F90.0 stable Vitamin D deficiency 347 02949 E55.9 stable [id number] Nicholas [facility] [address] [place] [address] 10/02/2023 09:00:39 10/02/2023 10:14:02 Active or passive immunization 804437311 Z23 advised Adult heal th examination 115175662 Z00.00 stable Depression screening 171 010003 Z13.31 is up on the celexa to 40 mgsees [facility] his tory of Cardiovascular disease 541933202 Z82.49 [id number] Nicholas [facility] [address],[place] [address] 01/24/2024 09:58:01 01/24/2024 13:56:49 Pneumonia 277299795 J18.9 start on medication s for pna [id number] Nicholas [facility] [address], [place] [address] 05/31/2024 11:53:04 05/31/2024 16:08:59 Acute bronchitis 53454780 J20.8 start on amox x 10 days and pred taper Acute cough 6629663614 31269060 R05.1 start on prednisone Influenza caused by Influenza A virus 984413122 J09.X2 ?weak positive on testing Wheezing 22603067 R06.2 bilateral lungs throughout [id number] Nicholas [facility] [address],[place] [address] 10/08/2024 08:54:28 10/08/2024 09:51:10 Active or passive immunization 363775287 Z23 advised Depression screening 171 981210 Z13.31 is up on the celexa to 40 mg and added propranolo lsees psychiatri [facility] ex amination of patient 391631225 Z00.00 80333238 stable [id number] Nicholas [facility] [address],[place] [address] 12/17/2024 09:46:20 12/17/2024 14:41:22 Tick bite 22596174 S20.162D W57.XXXD 4615559550 will set up with singulair dose Depressive disorder 3548 9007 F32.A 19029 stable Pigmented skin lesion 20 0605608 D22.9 347029 will set up with derm for eval Health Concerns Section Related Observation LastModified by Organization Detai ls LastModified Time None Recorded Concern Status LastModified by Organization Details LastModified Time None Recorded Advance Directives Directive None Recorded Payers Insurance Date Sequence Insurance Name Policy Number Policy Hale Covered Member ID Hale Member ID Guarantor Name 09/30/2023 1 [place] [facility] [place] [id number] [facility] [id number] Bernard Ramirez 12/17/2024 1 [place] (O) [id number] Bernard [facility] [id number] Bernard Ramirez Notes Date Note Type Note Provider Name and Address Organization Details Recorded Time 4 text/html Annual WellnessReported by PatientSocial/Behaviora l [...] due to his 8 mos old son teething currentlywill be starting couples therapy again, which has been great tool in his relationship JACK LAWRENCE [address] [place], [address], [facility] 10/02/2023 09:26:46 4 text/html ROS as noted in the HPI c/o sick symptoms The patient is participating in this appointment via telemedicine communication with a phone call/video calling service ([employer])The patient consents to use of these platforms [...] results was negative x1 JACK LAWRENCE [address] [place], [address], [facility] 01/24/2024 11:16:58 5 text/html ROS [...] is elevated as well JACK LAWRENCE [address] [place], [address], [facility] 05/31/2024 12:22:27 5 text/html Annual [...] appt was Mary Ellen another one in as noted in the HPI BP is excellentthe patient is going through a separation with his , working with his psychiatristdoing well JACK LAWRENCE [address] [place], [address], [facility] 10/08/2024 09:31:04 5 text/html ROS as noted in the [...] bottom lip, noted by dentist, recommended derm lena, also needs routine skin checks going forwardthe patient reports that he hasn't noticed it changed, but does admit he didn't notice at all to begin with until his dentist pointed it out JACK LAWRENCE [address] [place] [address], [place], [address], [facility] 12/17/2024 10:08:49
== END 2025-01-29 16:09 | disposition home or self-care (01) ==
LOC: HO.HMGAL 16:09
PROVIDERS: PCP Physician Assistant; Visit Provider Registered Nurse Emergency
DX: J30.89 Other allergic rhinitis (principal)
CPT/HCPCS: 95117; 95165